=== PATIENT | female | born 1965 | race Caucasian/White ===

== ENCOUNTER → 2016-12-13 | Outpatient (CLI) | payer BC ==
[~2016-12-13] MED LIST: BYSTOLIC5 MG PO; MULTI VITAMINS1 TAB PO; OSCAL 500 TAB500 MG PO; PROTONIX 40MG T40 MG PO
== END ==
LOC: COL.RAD 07:58
DX: R14.0 Abdominal distension (gaseous) (principal)
CPT/HCPCS: A9541

== ENCOUNTER → 2017-01-31 | Outpatient (CLI) | payer BC | LOC: COL.RAD 01-30 09:00 | DX: R79.89 Other specified abnormal findings of blood chemistry (principal) ==

== ENCOUNTER → 2017-03-21 | Outpatient (CLI) | payer BC ==
[~2017-03-21] VITALS: Ht 167.6 cm; Wt 102.6 kg
[2017-03-21] VITALS (15 sets, daily range): BP systolic 124–144; BP diastolic 63–91; PULSE 49–66
[2017-03-21 09:18] LABS: PROTHROMBIN TIME 11.1 SECONDS (9.7-12.8)
== END ==
LOC: COL.RAD 08:48
PROVIDERS: Internal Medicine Gastroenterology
DX: Z12.11 Encounter for screening for malignant neoplasm of colon (principal); R74.8 Abnormal levels of other serum enzymes; K21.9 Gastro-esophageal reflux disease without esophagitis; R74.0 Nonspecific elevation of levels of transaminase and lactic acid dehydrogenase [LDH]; R19.4 Change in bowel habit; R03.0 Elevated blood-pressure reading, without diagnosis of hypertension; R19.7 Diarrhea, unspecified; R91.8 Other nonspecific abnormal finding of lung field; K76.0 Fatty (change of) liver, not elsewhere classified; R14.0 Abdominal distension (gaseous); Z68.36 Body mass index [BMI] 36.0-36.9, adult
CPT/HCPCS: J2250; J3010

== ENCOUNTER → 2018-03-13 | Outpatient (CLI) | payer BC | LOC: MC.RAD 03-07 14:00 | DX: Z12.31 Encounter for screening mammogram for malignant neoplasm of breast (principal) ==

== ENCOUNTER → 2019-09-05 | Outpatient (CLI) | payer BC | LOC: MC.RAD 11:40 | DX: Z12.31 Encounter for screening mammogram for malignant neoplasm of breast (principal) ==

== ENCOUNTER → 2021-10-31 | Outpatient (CLI) | payer BC | LOC: MC.RAD 14:49 | DX: Z12.31 Encounter for screening mammogram for malignant neoplasm of breast (principal) ==

== ENCOUNTER → 2024-04-14 | Outpatient (CLI) | payer OTHER ==
[~2024-04-14] MED LIST changes: +COZAAR100 MG PO; +EYE MULTIVITAM1 EAC1 PO; +HCTZ 25MG TAB25 MG PO; +VITAMIN D31000 I1 PO; +VITAMIN D31000 IU PO
== END ==
LOC: MC.RAD 10:41
DX: Z12.31 Encounter for screening mammogram for malignant neoplasm of breast (principal)